=== PATIENT | male | born 1995 | race Caucasian/White ===

== ENCOUNTER 2019-11-15 00:44 | Emergency (ER) | payer OTHER ==
[~2019-11-15] VITALS: Ht 172.7 cm; Wt 72.6 kg
[2019-11-15 00:50] VITALS: BP 111/72
[2019-11-15] MEDS ORDERED: Acetaminophen 500mg (ES) tab ORAL ONE (01:00)
--- NOTE | 2019-11-15 01:03 | Emergency Room Report ---
History of Present Illness General Chief Complaint: Fever Source: Patient Present Illness [facility] This is a 23-year-old male with no past medical history. He presents with chief complaint of fever sore throat and cough. Onset 1 day. He said a few days ago he had a headache. Today he started having body aches and sore throat. Also fever tonight and feels short of breath. His called 911. Patient has not take anything for. Denies any nausea vomiting or diarrhea. He said his grandmother will test positive for COVID 4 months ago. No other sick contact that he knows of. 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 Patient History Past Medical History: none, see triage record, old chart reviewed Past Surgical History: none Pertinent Family History: none Social History: Denies: smoking Immunizations: other Reviewed Nursing Documentation: PMH: Agreed; PSxH: Agreed Nursing Documentation-PMH Past Medical History: No Stated History Review of Systems Constitutional: Reports: chills, fever, malaise Eye: Denies: eye pain, blurred vision ENT: Reports: throat pain; Denies: ear pain, nose congestion, throat swelling Respiratory: Reports: shortness of breath; Denies: cough Cardiovascular: Denies: chest pain, palpitations Gastrointestinal: Denies: abdominal pain, diarrhea, nausea, vomiting Musculoskeletal: Denies: back pain, joint pain Skin: Denies: rash Neurological: Denies: headache, numbness Endocrine: Denies: increased thirst, increased urine Hematologic/Lymphatic: Denies: easy bruising All Other Systems: negative except mentioned in HPI Physical Exam Vital Signs Date Time Temp Pulse Resp B/P (MAP) Pulse Ox O2 Delivery O2 Flow Rate FiO2 11/15/19 00:42 103.3 115 18 108/70 (83) 97 Room Air Vitals with fever Sp02 EP Interpretation: reviewed, normal General Appearance: well appearing, no apparent distress, alert Head: normocephalic, atraumatic Eyes: bilateral eye PERRL, bilateral eye EOMI ENT: hearing grossly normal, normal pharynx Neck: full range of motion, supple, no meningismus Respiratory: chest non-tender, lungs clear, normal breath sounds Cardiovascular #1: regular rate, rhythm, no murmur Gastrointestinal: normal bowel sounds, non tender, no mass, no organomegaly, no bruit, non-distended Musculoskeletal: back normal, normal range of motion, gait/station normal Psychiatric: mood/affect normal Medical Decision Making Diagnostic Impression: Primary Impression: Fever Qualified Codes: R50.9 - Fever, unspecified Additional Impression: Suspected 2019 novel coronavirus infection ER Course Cough, shortness of breath myalgia. Symptoms suspicious of COVID infection. He is saturating 100% on room air. Chest x-ray is normal. No respiratory distress. Will treat symptomatically as an outpatient. Chest X-Ray Diagnostic Results Chest X-Ray Diagnostic Results : Chest X-Ray Ordered: Yes # of Views/Limited/Complete: 1 View Indication: Shortness of Breath EP Interpretation: Yes Interpretation: no consolidation, no effusion, no pneumothorax, no acute cardiopulmonary disease Impression: No acute disease Electronically Signed by: Sheldon Hood MD Last Vital Signs Date Time Temp Pulse Resp B/P (MAP) Pulse Ox O2 Delivery O2 Flow Rate FiO2 11/15/19 00:42 103.3 115 18 108/70 (83) 97 Room Air Status: improved Disposition: HOME, SELF-CARE Condition: Stable Scripts Prednisone* (PREDNISONE*) 20 Mg Tablet 40 MG ORAL DAILY, #12 TAB Prov: Sheldon Hood MD 11/15/19 Albuterol Sulfate (VENTOLIN HFA) 18 Gm Hfa.aer.ad 2 PUFFS INH EVERY 6 HOURS, #18 GM 0 Refills Prov: Sheldon Hood MD 11/15/19 Patient Instructions: Fever, Adult, [id number] Additional Instructions: Rest. Increase fluid. Take Tylenol Motrin for fever. Use inhaler as needed. A COVID test was sent. Someone will call you in 2 to 3 days with results. Follow-up with your doctor in 7 days. Return if symptoms worsen. Sheldon Hood MD Nov 15, 2019 01:03
[2019-11-15 01:42] VITALS: BP 125/63
[2019-11-15] MEDS ORDERED: VENTOLIN HFA18 GM INH (01:42)
[2019-11-15] MEDS ORDERED: PREDNISONE20 MG ORAL (01:42)
[2019-11-15 01:45] VITALS: BP 125/63
--- NOTE | 2019-11-15 13:42 | Diagnostic Imaging Report ---
Indication: Shortness of breath Technique: One view of the chest Comparison: none Findings: Lungs and pleural spaces are clear. Heart size is normal. Impression: No acute process
== END 2019-11-15 01:45 | disposition home or self-care (01) ==
LOC: EDBD 00:44 → EMR 00:59
DX: R50.9 Fever, unspecified (principal); J02.9 Acute pharyngitis, unspecified; R05 Cough; R06.02 Shortness of breath
CPT/HCPCS: 71045; 99283; J7512